=== PATIENT | female | born 1940 | race Caucasian/White ===

== ENCOUNTER → 2016-07-18 | Day surgery (SDC) | payer OTHER ==
[~2016-07-18] MED LIST: BUPIVACAINE HCL PF 0.25% 30 ML VIAL ONE; CARI1TAB34 PO; CARI350T19 PO; CITA-48 PO; DIOV160T3 PO; GABA300C3 PO; LACTATED RINGER'S 1000 ML INJ 1,000 ML ONE; LORT5TAB PO; MIDAZOLAM HCL 2 MG/2 ML VIAL ONE; OMPR20CCR; ONDANSETRON HCL 4 MG/2 ML VIAL IV PUSH ONE; OXYC5 PO; PROPOFOL 200 MG/20 ML AMP IV ONE; ceFAZolin 2 GM PREMIX 50 ML ONE
--- NOTE | 2016-07-18 16:56 | MP ---
cc: MARTINEZ ROMANO DPM DATE OF SURGERY: 07/18/2016. PREOPERATIVE DIAGNOSIS: Right foot painful hardware right third digit, proximal interphalangeal joint hammertoe. POSTOPERATIVE DIAGNOSIS: Right foot painful hardware right third digit, proximal interphalangeal joint hammertoe. OPERATIVE PROCEDURE PERFORMED: 1. Remove hardware right foot, deep. 2. Right third digit proximal interphalangeal joint arthroplasty. SURGEON: Martinez Romano DPM SPECIMEN: None. ESTIMATED BLOOD LOSS: Less than 30 mL. COMPLICATIONS: None. ANESTHESIA: General anesthesia was used: 20 mL of 0.25% Marcaine plain. TOURNIQUET TIME: 41 minutes at a setting of 225 mmHg. PLAN OF ACTIVITY: Post-anesthesia care unit and then discharge home when stable per same day surgery criteria. JUSTIFICATION FOR THE PROCEDURE: This is a pleasant female with a history of right foot surgery; however, CT showed that there is loosening of one of the screws. We opted to move forward with removal of the screws. 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 We opted to move forward with revision DESCRIPTION OF THE PROCEDURE IN DETAIL: Under mild sedation, the patient was brought into the operating room and placed on the operative table in the supine position. Following the induction of general anesthesia, local anesthesia was obtained about the forefoot utilizing standard block fashion. The right foot was then scrubbed, prepped and draped in the usual aseptic fashion. The foot was elevated, exsanguinated and the previously placed mid ankle tourniquet was inflated to 215 mmHg. Utilizing fluoroscopic guidance, incision was made over the dorsal aspect of the first ray and medial first ray. Sharp and blunt dissection was carried down to prominent screws heads, which were removed without any complication. This was a medial screw and two dorsal screws. The wound was then closed in layers. Next, incision was made over the dorsal aspect of the right third digit proximal interphalangeal joint. 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 The mushroom edges were then transected to a normal contour. A plantar incision was made releasing the flexor tendon. We opted not to move forward with K-wire fixation. We felt that there was enough stability. The wound was flushed with copious amounts of normal saline. Skin was closed utilizing nylon. Upon relieving the tourniquet, there was a prompt hyperemic response to all digits without any delayed capillary fill time. A bulky bandage was placed. The patient was transferred from the operating room to the post-anesthesia care unit with all vital signs stable, heel full weight=bear to tolerance and a postop shoe. Follow up in three to five days. KUMAR Nails/SANGEETHA /4:21 PM /4:36 PM
== END | disposition home or self-care (01) ==
LOC: ESDC 12:47
PROVIDERS: ATTEND Podiatrist Foot & Ankle Surgery
DX: T84.84XA Pain due to internal orthopedic prosthetic devices, implants and grafts, initial encounter (principal); M20.41 Other hammer toe(s) (acquired), right foot
CPT/HCPCS: 01480; 20680; 28285; 73620; 76000; J0690; J2250; J2405; J3010; J7120